=== PATIENT | male | born 1975 | race Caucasian/White ===

== ENCOUNTER 2022-02-10 19:23 | Emergency (ER) | payer OTHER ==
[2022-02-10 19:28] VITALS: BP 142/91
[2022-02-10] MEDS ORDERED: NAPROXEN500 MG PO (23:04)
[2022-02-10 23:06] VITALS: BP 142/91
== END 2022-02-10 23:39 | disposition home or self-care (01) | DRG 554 ==
LOC: ED 19:23
DX: M17.10 Unilateral primary osteoarthritis, unspecified knee (principal); V49.40XA Driver injured in collision with unspecified motor vehicles in traffic accident, initial encounter